=== PATIENT | female | born 1945 | race Caucasian/White ===

== ENCOUNTER 2018-07-19 06:40 | Day surgery (SDC) ==
--- NOTE | 2018-07-13 08:19 | EKG Report ---
Test Performed on : 07/13/2018 08:11:44 AM Test Reason : PAT Blood Pressure : / mmHG Vent. Rate : 070 BPM Atrial Rate : 070 BPM P-R Int : 194 ms QRS Dur : 132 ms QT Int : 482 ms P-R-T Axes : 059 -37 067 degrees QTc Int : 520 ms Normal sinus rhythm. Left axis deviation Left bundle branch block Abnormal ECG When compared with ECG of 09-OCT-2015 09:55, No significant change was found Unconfirmed Result
[2018-07-13 09:05] LABS: BASO# 0.05 X1000 (0.0-0.2); BILIRUBIN URINE NEGATIVE (NEGATIVE); BLOOD URINE NEGATIVE (NEGATIVE); COLOR YELLOW; EOS# 0.35 X1000 (0.0-0.7); EOS% 7.1 % (0.0-10.0); GLUCOSE URINE NEGATIVE (NEGATIVE); HEMATOCRIT 36.8 % (37.0-47.0); HEMOGLOBIN 11.6 g/dL (12.0-16.0); KETONE URINE NEGATIVE (NEGATIVE); LEUKOCYTES URINE TRACE (NEGATIVE); LYMPH# 1.69 X1000 (1.2-3.4); LYMPH% 34.5 % (20.5-51.1); MCH 29.6 PG (27-31); MCHC 31.5 g/dL (33-37); MCV 93.9 FL (81-99); MONO# 0.46 X1000 (0.11-0.59); MONO% 9.4 % (1.7-9.3); MPV 11.1 FL (7.4-10.4); NEUT# 2.35 X1000 (1.4-6.5); NITRITE URINE NEGATIVE (NEGATIVE); PLT 301 X1000 (130-400); PROTEIN URINE NEGATIVE (NEGATIVE); RBC 3.92 XMIL (4.2-5.4); RDW 13.6 % (11.5-14.5); SP GRAVITY URINE 1.006; TURBIDITY URINE CLEAR (CLEAR); URINE SOURCE CLEAN CATCH; UROBILINOGEN URINE NORMAL (NORMAL)
[2018-07-13 09:07] LABS: UR EPITHELIAL CELLS <10 /HPF (<10); URINE BACTERIA NEGATIVE /HPF; URINE RBC <10 /HPF (<10); URINE WBC <10 /HPF (<10)
[2018-07-13 09:29] LABS: INR 0.89; PROTIME 12.8 Seconds (11.0-16.0)
[2018-07-13 09:30] LABS: PTT 30.4 Seconds (22.3-41.8)
[2018-07-13 09:41] LABS: CALCIUM 8.8 mg/dL (8.8-10.2); CREATININE 1.2 mg/dL (0.5-0.9); POTASSIUM 4.3 mmol/L (3.5-5.1)
[2018-07-19] MEDS ORDERED: COLACE ONE (07:18)
[2018-07-19] MEDS ORDERED: PEPCID ONE (07:18)
[2018-07-19] MEDS ORDERED: LYRICA ONE (07:18)
[2018-07-19] MEDS ORDERED: KEFZOL 2 GM/D5W 2 GM/50 ML IVPB ONE (07:18)
[2018-07-19] MEDS ORDERED: REGLAN ONE (07:18)
[2018-07-19] MEDS ORDERED: CELEBREX ONE (07:18)
[2018-07-19] MEDS ORDERED: LR 500 ML ONE (07:18)
[2018-07-19] MEDS ORDERED: COREG PO ONE (07:34)
[2018-07-19] MEDS ORDERED: DURAMORPH ONE (08:08)
[2018-07-19] MEDS ORDERED: TORADOL ONE (08:08)
[2018-07-19] MEDS ORDERED: DIPRIVAN 1% ONE ×2 (08:08→08:29)
[2018-07-19] MEDS ORDERED: EXPAREL 1.3% ONE (08:09)
[2018-07-19] MEDS ORDERED: SENSORCAINE-MPF 0.5%/EPI 1:200,000 ONE (08:09)
[2018-07-19] MEDS ORDERED: SODIUM CHLORIDE 0.9% ONE (08:09)
[2018-07-19] MEDS ORDERED: CYKLOKAPRON 1,000 MG/NS 2,000 MG/200 ML IVPB ONE (08:10)
[2018-07-19] MEDS ORDERED: NEOSPORIN G.U. IRRIGANT ONE (08:11)
[2018-07-19] MEDS ORDERED: FENTANYL ONE (08:30)
[2018-07-19] MEDS ORDERED: VANCOMYCIN ONE (08:49)
[2018-07-19] MEDS ORDERED: SODIUM CHLORIDE 0.9% 10 ML ONE (08:54)
[2018-07-19] MEDS ORDERED: NEO-SYNEPHRINE ONE ×2 (08:54→09:03)
[2018-07-19] MEDS ORDERED: OFIRMEV 1000 MG/ISOTONIC SOLN 1,000 MG/100 ML BOTTLE ONE (09:22)
[2018-07-19] MEDS ORDERED: DECADRON ONE (09:22)
[2018-07-19] MEDS ORDERED: ZOFRAN ONE (09:22)
--- NOTE | 2018-07-19 10:51 | OPERATIVE NOTE ---
PROCEDURE DATE: 07/19/2018 PREOPERATIVE DIAGNOSIS: Degenerative joint disease, right knee. POSTOPERATIVE DIAGNOSIS: Degenerative joint disease, right knee. PROCEDURE PERFORMED: Right total knee replacement. SURGEON: Kang Hernandez MD. ANESTHESIA: Spinal. COMPLICATIONS: None. VP COMPLIANCE: RACHANA Almanzar. Mr. Reyes was necessary for proper traction and manipulation as well as assistance during the surgery. PROCEDURE IN DETAIL: This 72-year-old female presents for a right total knee. Risks, benefits, and no guarantees were discussed, and she is willing to proceed. She was taken to the operating room and satisfactory spinal anesthesia obtained. The right leg was prepped and draped in the usual sterile fashion. A time-out was taken to confirm operative site, procedure, and the patient. The leg was wrapped with an Esmarch and tourniquet inflated to 300 mmHg. A midline incision was made over the front of the knee, followed by a quadriceps tendon sparing arthrotomy. The patella was everted and resurfaced with freehand technique, and subluxed laterally. An intramedullary hole was then made in the distal femur. The distal femoral cutting block was secured in 5 degrees of valgus. The distal femoral resection was made and the femur sized to a size 4 femoral implant. The 4 in 1 block was secured. The anterior, posterior, and chamfer cuts were sequentially made. Afterwards, the knee was flexed and a PCL retractor placed behind the femur to protect the neurovascular bundle. Tibial cutting block was secured with extramedullary alignment and tibial resection made. Flexion and extension gaps were noted to be roughly equal with a 6 mm spacer block. Tibia was sized to a size 5 tibial tray. Trial reduction was then performed with a size 5 rotating platform tibial tray, a 6 mm articular cruciate retaining insert, and a size 4 right femoral component. The patella was sized to a 35 medialized dome patella. This had central midline patellar tracking. After accurate trialing and soft tissue balancing, the lug holes were placed for the patella and the femoral implant. The trial components were removed and the bony surfaces thoroughly irrigated with pulsatile lavage. Cement with a gram of vancomycin was then utilized to cement a [employer] size 5 rotating platform tibial baseplate, a size 4 regular cruciate retaining femoral component, and a 35 medialized dome patella onto the bony surfaces. While the cement cured, excess cement was removed with a Paterson elevator and the joint capsule irrigated. The joint capsule was then injected with Exparel for pain management and a Hemovac drain placed. After full curing of the cement, a 6 mm cruciate retaining rotating platform polyethylene bearing to match the size 4 implant was inserted into the knee and the knee reduced. Final range of motion was 0 to 120 degrees with midline patellar tracking and good soft tissue balance. The arthrotomy was then copiously irrigated with irrigant. It was then closed with 1-0 Vicryl over the drain and 2-0 Vicryl in the subcutaneous, and carol ann on the skin. Sterile dressings completed the closure. The patient was recovered from anesthesia and transferred to the recovery room in stable condition. No intraoperative complications were noted. Instrument count and sponge count were correct at the time of closure. cc: Sabino Hernandez MD
[2018-07-19] MEDS ORDERED: NS 1,000 ML ONE ×2 (11:02→11:58)
--- NOTE | 2018-07-19 11:28 | Diag Imaging Result Doc PS360 ---
EXAM: KNEE 1-2 VIEWS-RIGHT HISTORY: RTKA TECHNIQUE: Right knee two views COMPARISON: None. FINDINGS: There has been recent orthopedic replacement of the right knee. No fracture. No dislocation. There are anterior skin carol ann with a superior surgical drain. IMPRESSION: Good alignment to the femoral and tibial components following orthopedic replacement of the right knee. Electronically signed by Maclolm Wells 07/19/2018 11:26 AM
[2018-07-19 11:42] LABS: URINE SOURCE CATH
[2018-07-19 11:53] LABS: BILIRUBIN URINE NEGATIVE (NEGATIVE); BLOOD URINE TRACE (NEGATIVE); COLOR YELLOW; GLUCOSE URINE NEGATIVE (NEGATIVE); KETONE URINE NEGATIVE (NEGATIVE); LEUKOCYTES URINE LARGE (NEGATIVE); NITRITE URINE POSITIVE (NEGATIVE); PROTEIN URINE TRACE mg/dL (NEGATIVE); SP GRAVITY URINE 1.012; TURBIDITY URINE HAZY (CLEAR); UROBILINOGEN URINE NORMAL (NORMAL)
[2018-07-19 11:57] LABS: UR EPITHELIAL CELLS <10 /HPF (<10); URINE BACTERIA 4+ /HPF; URINE RBC <10 /HPF (<10); URINE WBC TNTC /HPF (<10)
[2018-07-19] MEDS ORDERED: ZOFRAN ODT PO PRN (12:06)
[2018-07-19] MEDS ORDERED: ZOFRAN IV PRN (12:15)
[2018-07-19] MEDS ORDERED: OXY IR PO PRN (12:15)
[2018-07-19] MEDS ORDERED: MORPHINE IV PRN ×3 (12:15)
--- NOTE | 2018-07-19 12:30 | PROGRESS NOTE ---
DATE: 07/19/2018 Ms. Oscar is seen status post total knee replacement. She is afebrile with stable vital signs. She did have some hypertension in the recovery room, which was felt to be secondary to the spinal. This responded to fluid bolus. Presently, she is awake and alert and comfortable. Her bandage is clean and dry. She appears to be motor and sensory intact. We will continue to monitor her for hypotension at this point. We will plan on mobilizing her when tolerated. cc: Sabino Hernandez MD
[2018-07-19] MEDS: OXY IR PO PRN (14:28)
[2018-07-19] MEDS: ULTRAM PO SCH ×2 (15:51→20:46)
[2018-07-19] MEDS: TYLENOL PO SCH ×2 (15:52→20:47)
[2018-07-19] MEDS: KEFZOL 2 GM/D5W 2 GM/50 ML IVPB IV SCH (18:16)
[2018-07-19] MEDS: PERIDEX MT SCH (20:43)
[2018-07-19] MEDS: CELEBREX PO SCH (20:45)
[2018-07-19] MEDS: COLACE PO SCH (20:45)
[2018-07-19] MEDS: NS 1,000 ML IV SCH (20:47)
[2018-07-20] MEDS: KEFZOL 2 GM/D5W 2 GM/50 ML IVPB IV SCH (02:00)
[2018-07-20] MEDS: TYLENOL PO SCH ×3 (03:10→17:09)
[2018-07-20] MEDS: ULTRAM PO SCH ×3 (03:10→17:08)
[2018-07-20 05:52] LABS: HEMATOCRIT 32.3 % (37.0-47.0)
[2018-07-20 06:12] LABS: CALCIUM 8.1 mg/dL (8.8-10.2); CREATININE 1.5 mg/dL (0.5-0.9); POTASSIUM 4.6 mmol/L (3.5-5.1)
[2018-07-20] MEDS: NS 1,000 ML IV SCH (06:12)
[2018-07-20] MEDS ORDERED: ROCEPHIN 1 GM in NS 50 ML IV ONE (07:28)
[2018-07-20] MEDS ORDERED: ZEMURON ONE ×2 (07:48)
[2018-07-20] MEDS ORDERED: OFIRMEV 1000 MG/ISOTONIC SOLN 1,000 MG/100 ML BOTTLE ONE (07:53)
[2018-07-20] MEDS ORDERED: DECADRON ONE (07:53)
[2018-07-20] MEDS ORDERED: ZOFRAN ONE (07:53)
--- NOTE | 2018-07-20 07:55 | PROGRESS NOTE ---
DATE: 07/20/2018 SUBJECTIVE DATA: Ms. Oscar is seen on postop day 1 of right total knee arthroplasty. She reports doing well. She reports her pain is 2/10 at this time. She also reports she has not been up with physical therapy at this time. OBJECTIVE DATA: There is good sensation to the right lower extremity. There is good pedal pulses. The bandages are clean and dry. There is negative Luke's sign. There was about 50 mL of bloody drainage in the drain. ASSESSMENT: Degenerative joint disease right knee with total knee arthroplasty and urinary tract infection. PLAN: We will plan on sending Ms. Oscar home with antibiotics, doxycycline 100 mg, for her UTI. She will start home therapy right away. She is to follow up in office in 2 weeks for staple removal. We will also place her on aspirin twice a day for deep venous thrombosis prophylaxis. I have given her Percocet 10 mg for pain. Dictated by RACHANA Almanzar for Sabino Hernandez MD cc: RACHANA Almanzar MD
[2018-07-20] MEDS ORDERED: ASPIRIN PO SCH (09:00)
[2018-07-20] MEDS ORDERED: PEPCID PO SCH (09:00)
[2018-07-20] MEDS: CELEBREX PO SCH ×2 (09:09→17:10)
[2018-07-20] MEDS: COLACE PO SCH (09:09)
[2018-07-20] MEDS: PERIDEX MT SCH (09:09)
[2018-07-20 12:02] VITALS: BP 114/65
[2018-07-20] MEDS: OXY IR PO PRN ×2 (14:01→17:19)
== END 2018-07-20 18:49 | disposition home or self-care (01) ==
LOC: OR 06:40 → SURHOLD 06:40 → 4N 10:01 → OR 07-20 18:49
PROVIDERS: ATTEND Orthopaedic Surgery Adult Reconstructive Orthopaedic Surgery
CPT/HCPCS: 73560; 80048; 81001; 85014; 85018; 85025; 85610; 85730; 86850; 86900; 86901; 87077; 87088; 87186; 88305; 88311; 93005; 93010; 94761; 94799; 97110; 97116; 97162; A9270; C9290; J0131; J0690; J0696; J1100; J1885; J2274; J2275; J2370; J2405; J3010; J3370; J7030; J7120; Q9974

== ENCOUNTER 2018-08-23 01:17 | Inpatient (IN) ==
[2018-08-23] MEDS ORDERED: KEFZOL 1 GM/D5W 1 GM/50 ML IVPB IV ONE (01:40)
--- NOTE | 2018-08-23 01:46 | PROVIDER DOCUMENTATION ---
This chart was entered by Diana Bobo Scribe, acting as scribe for Angelo Reyes MD. HPI-Rash/Wound/ReCheck - General Chief Complaint: Fall Stated Complaint: fall, recent tkr injury Time Seen by Provider: 08/23/18 01:23 Source: patient Allergies/Adverse Reactions: Allergies Allergy/AdvReac Type Severity Reaction Status Date / Time hydrocodone Allergy RASH Verified 07/18/18 15:11 Home Medications: Home Medication List Medication Instructions Recorded Confirmed Last Taken Type Furosemide [Lasix] 40 mg PO DAILY #0 tablet 01/13/13 08/23/18 07/18/18 07:00 Rx Spironolactone [Aldactone] 25 mg PO DAILY #0 tablet 01/13/13 08/23/18 07/18/18 07:00 Rx Carvedilol 25 mg PO DAILY 07/06/13 08/23/18 07/18/18 07:00 History Olmesartan [Benicar] 20 mg PO DAILY 07/06/13 08/23/18 07/18/18 07:00 History Fenofibric Acid (Choline) 135 mg PO DAILY 10/09/15 08/23/18 07/18/18 07:00 History [Fenofibric Acid] Aspirin [Clay Aspirin] 81 mg PO DAILY 10/10/15 08/23/18 07/12/18 History Rosuvastatin Calcium [Crestor] 40 mg PO DAILY 07/18/18 08/23/18 07/18/18 18:00 History Oxycodone HCl/Acetaminophen 1 ea PO Q6H PRN #40 tab 07/20/18 08/23/18 Unknown Rx [Percocet 10-325 mg Tablet] Hydrocortisone 2.5% Cream 1 applicatn SC BID #30 tube 08/21/18 08/23/18 Unknown Rx [Anusol-Hc Cream] - History of Present Illness-Dermatology Nature of Presenting Problem: 72 yof c/o [facility]. 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 sutures out 10 days ago, wound still dressed and active bleeding. pt had sx w/dr. angeles 07-19. pt denies any other injuries. pt was seen and tx in er last night for internal hemorrhoids. pt still having prob w/rectal breeding. Review of Systems - Adult - REVIEW OF SYSTEMS - ADULT Constitutional: reports: no symptoms reported. denies: chills, fever, fatique Eyes: reports: no symptoms reported Ears, Nose, Mouth & Throat: reports: no symptoms reported Cardiovascular: reports: no symptoms reported Respiratory: reports: no symptoms reported Gastrointestinal: reports: no symptoms reported Genitourinary: reports: no symptoms reported Musculoskeletal: reports: see HPI, joint pain (rt knee sx wound opened up. active bleeding and wound dressed). denies: bone pain, back pain, muscle weakness, neck pain Integumentary: reports: no symptoms reported Neurological: reports: no symptoms reported. denies: dizziness/vertigo, headache/migraines, numbness Psychiatric: reports: no symptoms reported Endocrine: reports: no symptoms reported Hematologic/Lymphatic: reports: no symptoms reported Allergic/Immunologic: reports: no symptoms reported All Other Systems: Reviewed and Negative Past History - Adult - PAST MEDICAL HISTORY-ADULT Review of Records: reports: Old Records Reviewed, Nursing Assessment Review, Medications Reviewed, Social history reviewed & non-contributory. Major Childhood Illnesses: reports: denies history Cardiovascular: reports: HTN Respiratory: reports: denies history Gastrointestinal: reports: denies history Obstetrical/Gynecological: reports: denies history Genitourinary: reports: denies history Musculoskeletal: reports: denies history Neurological: reports: CVA Endocrine/Immune: reports: denies history Other Conditions: reports: denies history - PRIOR SURGERIES/PROCEDURES Surgical/Procedure History: reports: recent surgery (tkr rt knee), joint replacement (rt knee) - IMMUNIZATION STATUS Childhood Immunizations: See Nurse Assessment Flu Vaccine: See Nurse Assessment - FAMILY HISTORY Family History: reviewed, not pertinent - SOCIAL HISTORY Smoking: non-smoker Substance Use: alcohol Alcohol Use Frequency: rarely Physical Exam-General - PHYSICAL EXAM-ADULT Initial Vital Signs Reviewed: Yes - CONSTITUTIONAL General Appearance: alert, mild distress. negative: cachetic, slow to respond, obtunded - EYES Eyes: PERRL/EOMI, pink conjunctivae - HEAD, EARS, NOSE, MOUTH & THROAT HENMT: normocephalic/atraumatic, moist mucous membranes, normal ENT inspection - NECK Neck: non-tender, full range of motion, supple, normal inspection - RESPIRATORY Respiratory: chest non-tender, lungs clear, normal breath sounds - CARDIOVASCULAR Cardiovascular: normal peripheral pulses, no edema, no gallop, no JVD, no murmur , tachycardia. negative: regular rate, rhythm, JVD, bradycardia - GASTROINTESTINAL (ABDOMEN) Abdominal Exam: normal bowel sounds, non tender, soft - LYMPHATIC Lymphatic: no adenopathy - MUSCULOSKELETAL Back Exam: normal inspection, no CVA tenderness, no vertebral tenderness Extremity: no pedal edema, no calf tenderness, normal capillary refill, tenderness (rt knee), other (rt knee total replacment wound opened after falling tonight. wound dressed w/active bleeding). negative: normal range of motion, non-tender, normal inspection, deformity, erythema, pulse deficit, pedal edema, slow capillary refill Peripheral Pulses: radial (R): 2+, radial (L): 2+ - SKIN Integumentary: normal color, normal turgor, warm/dry - NEUROLOGIC Neurologic: grossly normal, no motor/sensory deficits - PSYCHIATRIC Psych/Mental Status: normal mood/affect, normal thought content, normal thought process, oriented x 3 Progress - PLAN OF CARE/RESULTS Progress/Plan/Lab Results: Vital Signs - 8 hr 08/23/18 01:23 Temperature 97.4 F L Pulse Rate 112 H Respiratory Rate 20 Blood Pressure 125/70 O2 Sat by Pulse Oximetry 97 Orders Category Date Time Status Wound Care DIRECTED Care 08/23/18 01:41 Ordered KNEE 3 VIEWS RIGHT [RAD] Stat Exams 08/23/18 01:31 Ordered Kefzol 1 gm IV Now Med 08/23/18 01:40 Ordered Cefazolin 1 gm/D5w [Kefzol 1 gm/D5w] 1 gm in 50 ml IV NOW Departure - Departure Date of Disposition Decision: 08/23/18 Time of Disposition Decision: 01:45 DIAGNOSIS: Wound disruption, post-op, skin Disposition: ADMITTED INPATIENT 09 Certified Medical Emergency: Emergent Condition: Fair - Critical Care Note This patient required my direct & personal management of CC.: No Attestation - Physician/ HOWARD Attestation Patient care was provided by Advanced Practice Provider:: No The physician spent face to face time with patient:: Yes Advanced Practice Provider documentation review:: Supervising physician onsite and consulted in the evaluation and care of this patient. The physician did have a face to face encounter with the patient. This chart was documented by the indicated scribe, (Diana Bobo Scribe) and accurately reflects the services I performed and decisions made by me, Angelo Reyes MD, as attested by the provider's signature.
--- NOTE | 2018-08-23 04:13 | HISTORY AND PHYSICAL ---
PRIMARY CARE PHYSICIAN: Dr. Ayesr. CHIEF COMPLAINT: Fall and right knee wound disruption. HISTORY OF PRESENTING ILLNESS: This is a 72-year-old female with a history of hypertension, CHF, lymphoma and hyperlipidemia, who apparently had a right knee replacement in late June, who presented to the emergency department after she had a fall earlier today which disrupted the wound and opened it up. The patient was evaluated in the emergency department. Her case was discussed with Orthopedics who recommended the patient be admitted for further management. At the time of my examination the patient denied any headache, fever, chills, chest pain, shortness of breath, hemoptysis, melena or weight changes, but complained of right knee pain. PAST MEDICAL HISTORY: Includes CHF, lymphoma, hyperlipidemia, hypertension. PAST SURGICAL HISTORY: Right total knee replacement, right ankle surgery, right shoulder surgery, back surgery, hysterectomy. ALLERGIES: Hydrocodone. CURRENT MEDICATIONS: Include aspirin 81 mg p.o. daily, carvedilol 25 mg p.o. daily, fenofibrate 135 mg p.o. daily, Lasix 40 mg p.o. daily, olmesartan 20 mg p.o. daily, Percocet 10/325 one p.o. q.6 hours, Crestor 40 mg p.o. daily, spironolactone 25 mg p.o. daily. SOCIAL HISTORY: No history of smoking. Admits to social alcohol use. Denies any illicit drug use. FAMILY HISTORY: No history of coronary disease. REVIEW OF SYSTEMS: Fourteen point review of systems is as in the HPI. Other systems negative. PHYSICAL EXAMINATION: GENERAL: A cooperative friendly female. She is resting comfortably now. VITAL SIGNS: Temperature 97.4 degrees, pulse 112, respirations 20, blood pressure 125/70. HEENT: Extraocular movements intact. PERRLA. NECK: No masses. CHEST: Clear to auscultation. CARDIOVASCULAR: Regular rate and rhythm. ABDOMEN: Soft. Positive bowel sounds. EXTREMITY: Right knee wound noted. GENITOURINARY: No bladder distention. SKIN: Warm. LABORATORIES AND STUDIES: Still pending. ASSESSMENT: This is a 72-year-old female with a history of hypertension, hyperlipidemia, CHF, and lymphoma who had presented to the emergency department after she had a fall. The patient had a recent total knee replacement in late June that still had carol ann. It seems that after the fall the wound was disrupted, and her case was discussed with Orthopedics who recommended that the patient be admitted for further management. 1. Status post fall with a right knee wound disruption. 2. Hypertension. 3. Hyperlipidemia. PLAN: 1. We will admit the patient to medical floor with telemetry. 2. We will keep the patient NPO and give her adequate pain control. 3. We will start the patient on empiric antibiotics and consult Orthopedics. 4. Restart home medications. 5. Monitor blood pressure closely. 6. We will continue to follow, reassess and make further recommendation based on the patient's clinical course. cc: Rey Cespedes MD
[2018-08-23] MEDS ORDERED: VANCOMYCIN IV PER PHARMACY MISC SCH (04:14)
[2018-08-23] MEDS ORDERED: PERCOCET-10 PO PRN (04:14)
[2018-08-23] MEDS ORDERED: ZOFRAN IV PRN ×2 (04:14→12:00)
[2018-08-23 05:42] LABS: URINE SOURCE CLEAN CATCH
[2018-08-23 05:46] LABS: BILIRUBIN URINE NEGATIVE (NEGATIVE); BLOOD URINE NEGATIVE (NEGATIVE); COLOR STRAW; GLUCOSE URINE NEGATIVE (NEGATIVE); KETONE URINE NEGATIVE (NEGATIVE); LEUKOCYTES URINE LARGE (NEGATIVE); NITRITE URINE NEGATIVE (NEGATIVE); PH URINE 6.5; PROTEIN URINE NEGATIVE (NEGATIVE); TURBIDITY URINE CLEAR (CLEAR); UROBILINOGEN URINE NORMAL (NORMAL)
[2018-08-23 05:48] LABS: UR EPITHELIAL CELLS <10 /HPF (<10); URINE BACTERIA NEGATIVE /HPF; URINE RBC <10 /HPF (<10); URINE WBC TNTC /HPF (<10)
[2018-08-23] MEDS ORDERED: VANCOMYCIN 1,850 MG in NS 500 ML IV ONE (06:00)
--- NOTE | 2018-08-23 06:27 | Diag Imaging Result Doc PS360 ---
KNEE 3 VIEWS RIGHT - 08/23/2018 INDICATION: right knee pain TECHNIQUE: Three views COMPARISON: 07/19/2018 FINDINGS: There is an apparent fracture through the lower pole of the patella. There is focal soft tissue swelling here. The prosthesis is intact and normally aligned. No hardware fracture or loosening. IMPRESSION: Acute fracture through the lower pole of the patella. Electronically signed by Scotty Gibson 08/23/2018 6:24 AM
--- NOTE | 2018-08-23 08:44 | ORTHOPAEDICS CONSULTATION ---
DATE: 08/23/2018 CHIEF COMPLAINT: Fall and right knee pain. HISTORY OF PRESENT ILLNESS: This is a 72-year-old female with a history of hypertension, CHF, lymphoma in remission, and hyperlipidemia, who had a fall last night and landed on her right knee. She reports she had a knee replacement late June. She also reports that her right knee open up after she fell and started bleeding. She was seen in the emergency department and admitted for right knee wound dehiscence and orthopedic management. Orthopedics were consulted to see the patient about cleaning out her wound. PAST MEDICAL HISTORY: CHF, lymphoma, hyperlipidemia, hypertension. PAST SURGICAL HISTORY: Right total knee replacement, right ankle surgery, multiple back surgeries, hysterectomy, right shoulder surgery. ALLERGIES: Hydrocodone and tobramycin. CURRENT MEDICATIONS: Aspirin 81 mg daily, carvedilol 25 mg p.o. daily, fenofibrate 135 mg daily, Lasix 40 mg daily, olmesartan 20 mg p.o. daily, Percocet 10 1 every 6 p.r.n. pain, Crestor 40 daily, spironolactone 25 mg daily. SOCIAL HISTORY: The patient denies smoking. She drinks alcohol occasionally. She denies drug use. REVIEW OF SYSTEMS: Fourteen point review of systems was performed and all pertinent positives were listed in HPI. PHYSICAL EXAM: General: Patient is awake, alert, sitting in bed comfortably. Vital Signs: Temperature 98.2 degrees, pulse 80, blood pressure 124/63. Oxygen is 100% on room air. HEENT: Head is atraumatic, normocephalic. Eyes equal, round, reactive. Neck: Supple. Chest: Equal rise and fall. Cardiovascular: Regular rate and rhythm. Abdomen: Soft, nontender. Extremities: Right lower extremity: The right knee has had a recent total knee arthroplasty and the wound has busted open and there is bloody drainage coming out of the knee. Bleeding is under control at this time. There is some swelling noted to the right lower extremity. There is good pedal pulses. There is negative Homans sign. The patient can wiggle her toes without difficulty. There is good sensation in the right lower extremity. Skin: Warm. LABS: Urine reveals a urinary tract infection with large amount of leukocytes and white blood cells. ASSESSMENT: Right knee wound dehiscence from fall. PLAN: We will plan to take the patient to the operating room today and clean out her wound. Will place antibiotic beads and possibly a wound VAC. The patient agrees to this plan. All questions were answered. Risks and benefits was listed and went over with the patient. She agrees with this plan. Dictated by RACHANA Almanzar for Sabino Hernandez MD cc: RACHANA Almanzar MD Roger H. Moss Jr, MD
[2018-08-23] MEDS ORDERED: DIPRIVAN 1% ONE (08:59)
[2018-08-23] MEDS ORDERED: FENTANYL ONE ×2 (08:59→09:55)
[2018-08-23] MEDS ORDERED: XYLOCAINE-MPF 2% ONE (08:59)
[2018-08-23] MEDS ORDERED: ASPIRIN PO SCH (09:00)
[2018-08-23] MEDS ORDERED: VANCOMYCIN ONE (09:20)
[2018-08-23] MEDS ORDERED: NEOSPORIN G.U. IRRIGANT ONE (09:20)
--- NOTE | 2018-08-23 09:23 | PROGRESS NOTE ---
DATE: 08/23/2018 SUBJECTIVE: The patient was admitted earlier this morning after she fell and opened up her wound to her knee replacement surgery which was done on 07/19/2018. She also had an acute fracture through the lower pole of the patella. She has a urinary tract infection as well, and now tells me that she has had rectal bleeding for the last several days. She was coming to my office to talk with me about it when all of this happened. Bleeding apparently is just bright red blood. She has not been known to have hemorrhoids. She is having no pain in her abdomen, and no pain around her rectum. The patient is going to be going for surgery for repair of the wound, and some antibiotic beads to be placed in. OBJECTIVE: Blood pressure is 124/63, respirations 16, pulse 80, and temperature 98.2 degrees Fahrenheit.HEENT: She is normocephalic. PERRLA. Throat clear. Lungs: Clear to auscultation and percussion without rhonchi, rales, or wheezes. Heart: Regular rate and rhythm without murmurs, gallops, or friction rubs. Abdomen: Soft. Active bowel sounds. No organomegaly or tenderness. Extremities: The patient has a dressing over her right knee. ASSESSMENT: 1. Wound dehiscence after fall on right knee and surgery on that knee approximately a month ago. 2. Small fracture patella. 3. Urinary tract infection. 4. Rectal bleeding. PLAN: Surgery by Ortho. We will get GI to see her. Continue IV antibiotics for her urinary tract infection. Awaiting cultures. cc: Taiwo Ayers Jr, MD
[2018-08-23] MEDS ORDERED: EPHEDRINE ONE (10:11)
[2018-08-23] MEDS: ALDACTONE PO SCH (10:49)
[2018-08-23] MEDS: TRILIPIX PO SCH (10:49)
[2018-08-23] MEDS: LASIX PO SCH (10:49)
[2018-08-23] MEDS: COREG PO SCH (10:50)
[2018-08-23] MEDS: CRESTOR PO SCH (10:50)
[2018-08-23] MEDS: DILAUDID ONE ×2 (10:54→10:58)
[2018-08-23] MEDS: BENICAR PO SCH (10:55)
[2018-08-23] MEDS: ANUSOL-HC CREAM PR SCH (10:56)
[2018-08-23] MEDS ORDERED: NS 1,000 ML ONE (11:14)
[2018-08-23] MEDS ORDERED: ZOFRAN ODT PO PRN (12:00)
[2018-08-23] MEDS ORDERED: MORPHINE IV PRN ×3 (12:00)
[2018-08-23] MEDS ORDERED: OXY IR PO PRN ×2 (12:00)
--- NOTE | 2018-08-23 12:19 | OPERATIVE NOTE ---
PROCEDURE DATE: 08/23/2018 PREOPERATIVE DIAGNOSIS: Fall with dehiscence of right total knee wound. POSTOPERATIVE DIAGNOSIS: Fall with dehiscence of right total knee wound. PROCEDURE PERFORMED: Debridement, irrigation, and wound closure of right total knee. SURGEON: Kang Hernandez MD. SHELL MOLDER: RACHANA Almanzar. ANESTHESIA: General. COMPLICATIONS: None. PROCEDURE IN DETAIL: This 72-year-old female who roughly three and half weeks status post total knee had a slip and a fall at home, landing on the front of her right knee replacement. She split the middle 1/3 of her knee incision open. She presents now for surgical debridement, irrigation, and wound closure. Risks, benefits, and no guarantees were discussed, and she is willing to proceed. She was taken the operating room and satisfactory anesthesia obtained. The right leg was prepped and draped in the usual sterile fashion. A time-out was taken to confirm operative site, procedure, and patient. The leg was examined with no varus or valgus, or anterior/posterior instability of the knee. Roughly a 10 cm split of the middle 1/3 of the incision was noted. The skin was split open but the wound was explored and the capsular stitches and capsule were fully intact. The patellofemoral mechanism was intact. There was a small avulsion which was palpated as well as noted on x-ray off the inferior pole of the patella. Care was taken to ensure that the patellar tendon and extensor retinaculum were intact. The wound was then irrigated with 1 L of irrigant. It was then irrigated with 1 L of Bactisure. This was followed by another liter of irrigant. It was then sprinkled with vancomycin powder for antimicrobial prophylaxis. The incision was then closed with 2-0 Vicryl in the subcutaneous and skin carol ann on the skin edges. She was then recovered from anesthesia after placing a sterile bandage and transferred to the recovery room in stable condition. No intraoperative complications were noted. Instrument count and sponge count were correct at the time of closure. cc: MD Taiwo Blanc Jr, MD
[2018-08-23] MEDS: NS 1,000 ML IV SCH (12:30)
--- NOTE | 2018-08-23 15:20 | GASTROENTEROLOGY CONSULTATION ---
DATE: 08/23/2018 REASON FOR CONSULTATION: rectal bleeding HPI: Ms. Akilah Oscar is a 72 year old woman with HTN, HLD, lymphoma, prediabetes, OA, h/o CHF, chronic constipation, recent right knee replacement in 06/2018 who presented after having a fall and disrupting right knee wound. Orthopedics has been following and patient went to the OR today for debridement, irrigation, and wound closure. She also apparently has been having scant hematochezia with rectal bleeding over the last 4 days with blood coated stools and mild LLQ pain. No melena, blood clots, N/V, CP, SOB, lightheadedness, dizziness, or abnormal weight loss. She is on aspirin 81mg daily. She does report being more active recently with physical therapy. She denies significant constipation lately, which has been controlled with high fiber diet. Her last colonoscopy was [address] Torres, which was unremarkable. ROS: as per HPI; otherwise 12 point ROS negative PMH: HTN, HLD, lymphoma, prediabetics, OA, h/o CHF, chronic constipation PSH: Right total knee replacement, right ankle surgery, right shoulder surgery, back surgery, hysterectomy, CCY FH: No GI malignancies SH: No smoking. Rare ETOH. No drugs CURRENT MEDICATIONS: Include aspirin 81 mg p.o. daily, carvedilol 25 mg p.o. daily, fenofibrate 135 mg p.o. daily, Lasix 40 mg p.o. daily, olmesartan 20 mg p.o. daily, Percocet 10/325 one p.o. q.6 hours, Crestor 40 mg p.o. daily, spironolactone 25 mg p.o. daily. ALLERGIES: Hydrocodone, tetracycline PE: T98.2 HR 80 RR 16 BP 124/63 O2 100% RA GEN: awake, alert, NAD HEENT: anicteric, MMM NECK: supple, no jvd PULM: CTAB, no wheezing CV: RRR, no mrg ABD: lap scar, soft NT/ND, NABS, no rebound or guarding EXT: no cce, right knee with cristian bandage NEURO: nonfocal RECTAL: internal hemorrhoids; no blood in rectal vault; small amount of hard stool LABS: 08/21 BUN 28 Cr 1.3 WBC 5.8 Hgb 10.8 plts 281 LFTs WNL UA +LE A/P: Ms. Akilah Oscar is a 72 year old woman with HTN, HLD, lymphoma, prediabetes, OA, h/o CHF, chronic constipation, recent right knee replacement in 06/2018 who presented after having a fall and disrupting right knee wound, likely from a mechanical fall, s/p debridement, irrigation, and wound closure. GI consulted for scant hematochezia likely from bleeding hemorrhoids. Patient could benefit from diagnostic colonoscopy as patient. Will trend H/H while in the hospital and consider inpatient endoscopic evaluation should she have worsening hematochezia or anemia. I suspect she may have a lower hgb post-operatively. Keep patient on bowel regimen, post-operatively and avoid constipation. Hold blood thinners. Thank you for this consult. Will follow with you. cc: Taiwo Ayers Jr, MD MTDNessa
[2018-08-23] MEDS: ULTRAM PO SCH ×2 (16:34→21:29)
[2018-08-23] MEDS: TYLENOL PO SCH ×2 (16:34→21:30)
[2018-08-23] MEDS: KEFZOL 2 GM/D5W 2 GM/50 ML IVPB IV SCH ×2 (16:35→23:36)
[2018-08-23] MEDS: COLACE PO SCH (21:29)
[2018-08-24] MEDS: NS 1,000 ML IV SCH ×2 (03:15→03:50)
[2018-08-24] MEDS: ANUSOL-HC CREAM PR SCH ×2 (03:15→09:36)
[2018-08-24] MEDS: TYLENOL PO SCH (03:50)
[2018-08-24] MEDS: ULTRAM PO SCH (03:50)
[2018-08-24] MEDS ORDERED: VANCOMYCIN 1,250 MG in NS 250 ML IV SCH (06:00)
[2018-08-24 06:19] LABS: HEMATOCRIT 27.7 % (37.0-47.0); HEMOGLOBIN 8.4 g/dL (12.0-16.0); MCH 28.2 PG (27-31); MCHC 30.3 g/dL (33-37); MONO% 8.6 % (1.7-9.3); MPV 10.7 FL (7.4-10.4); NEUT% 66.8 % (42.2-75.2); PLT 280 X1000 (130-400); RBC 2.98 XMIL (4.2-5.4); RDW 14.2 % (11.5-14.5); WBC 4.75 X1000 (4.8-10.8)
[2018-08-24 06:20] LABS: BASO# 0.02 X1000 (0.0-0.2); BASO% 0.4 % (0.0-0.8); EOS# 0.01 X1000 (0.0-0.7); EOS% 0.2 % (0.0-10.0); LYMPH# 1.14 X1000 (1.2-3.4); MONO# 0.41 X1000 (0.11-0.59); NEUT# 3.17 X1000 (1.4-6.5)
[2018-08-24 07:13] LABS: CALCIUM 7.9 mg/dL (8.8-10.2); CREATININE 1.2 mg/dL (0.5-0.9); POTASSIUM 4.3 mmol/L (3.5-5.1)
[2018-08-24 07:40] VITALS: BP 109/62
--- NOTE | 2018-08-24 08:34 | ORTHOPAEDICS PROGRESS NOTE ---
DATE: 08/24/2018 SUBJECTIVE: Ms. Oscar is seen today status post debridement, irrigation and closure of her total knee wound. Her bandage is clean and dry. They can start dressing changes today. She can be mobilized. Full weightbearing. She can be discharged home when she is stable. We will see her in the office in roughly 10 to 14 days for follow-up. We will be available as needed during hospital course, but otherwise, she can be discharged home when medically stable. cc: MD Taiwo Blanc Jr, MD
[2018-08-24] MEDS ORDERED: PEPCID PO SCH (09:00)
[2018-08-24] MEDS ORDERED: ASPIRIN PO SCH (09:00)
[2018-08-24] MEDS ORDERED: CELEBREX PO SCH (09:00)
[2018-08-24] MEDS: ALDACTONE PO SCH (09:34)
[2018-08-24] MEDS: TRILIPIX PO SCH (09:34)
[2018-08-24] MEDS: COREG PO SCH (09:35)
[2018-08-24] MEDS: COLACE PO SCH (09:35)
[2018-08-24] MEDS: CRESTOR PO SCH (09:35)
[2018-08-24] MEDS: LASIX PO SCH (09:35)
[2018-08-24] MEDS: BENICAR PO SCH (09:36)
--- NOTE | 2018-08-24 10:46 | DISCHARGE SUMMARY ---
ADMISSION DATE: 08/23/2018 DISCHARGE DATE: 08/24/2018 FINAL DIAGNOSES: 1. Right knee wound disruption after a fall with dehiscence of previous surgery site. 2. Rectal bleeding, probably hemorrhoidal. She does have hemorrhoids on examination. 3. Mild anemia. 4. Pyuria. Urine culture results are not back yet. HISTORY OF PRESENT ILLNESS: The patient is a 72-year-old white female who presented after having a fall with hitting her right knee. She had had a right knee replacement in late June. She had dehiscence of her wound. Yesterday, she had debridement and antibiotic beads placed in the wound. She has done well with this. She told me that she had been having a little rectal bleeding, and was coming to me soon because of that, but had the fall before she got to the office. I had Dr. Doe apron man take a look at her. He felt like this was probably superficial, and that workup could be done as an outpatient after she gets over her surgery. She also had mild anemia which may be chronic. She also had pyuria. She was given a dose of vancomycin and of Kefzol here in the hospital. That may have cleared up her infection. Patient has a secondary diagnoses of congestive heart failure, lymphoma, hyperlipidemia, and hypertension as well as osteoarthritis. PHYSICAL EXAMINATION: Vital Signs: Stable with a blood pressure 109/62, respirations 18, pulse 71, and temperature 97.6 degrees Fahrenheit. HEENT: She is normocephalic. EOMS intact. PERRLA. Throat clear. Lungs: Clear to auscultation and percussion without rhonchi, rales, or wheezes. Heart: Regular rate and rhythm without murmurs, gallops, or friction rubs. Abdomen: Soft with active bowel sounds. No organomegaly or tenderness. DISPOSITION: Wound seems to be healing well. She is going to use some hydrocortisone cream for the rectal bleeding, and then we will do followup after she gets out of the hospital. Since she has had antibiotics and I do not have the culture report back, I will not put her on antibiotics at this time. She has had no symptoms with this. When we get the culture report back, we will decide if she needs to go on antibiotics. I will discharge her home on her regular home medications. I will see her back in my office within the next 1 to 2 weeks. We will repeat a urinalysis, and see if she has any more rectal bleeding at that time. cc: Taiwo Ayers Jr, MD [facility]
== END 2018-08-24 10:07 | disposition home health service (06) | DRG 908 ==
LOC: ED 01:17 → SUATTDRO 03:05 → 4N 03:05
PROVIDERS: ADMIT Emergency Medicine; ATTEND Emergency Medicine
CPT/HCPCS: 73562; 80048; 80053; 81001; 82270; 85025; 85610; 85730; 87088; 94799; 96365; 97110; 97116; 97162; 97530; 99283; 99285; A9270; J0690; J1170; J2405; J3010; J3370; J7030; J7040; J7050